=== PATIENT | female | born 1995 | race African-American/Black ===

== ENCOUNTER 2025-03-26 13:53 | Inpatient (IN) | payer SELFPAY ==
[~2025-03-26] VITALS: Ht 162.6 cm; Wt 50.8 kg
[2025-03-26 13:56] VITALS: O2SAT 100
[2025-03-26 14:33] LABS: BG DEOXYHEMOGLOBIN 27.8 % (0.0-5.0)
[2025-03-26 14:39] LABS: BASOPHILS % 0.4 % (0.0-2.0); EOSINOPHILS % 0.8 % (0.0-5.0); HEMATOCRIT. 40.4 % (36.0-48.0); HEMOGLOBIN. 13.3 g/dL (12.0-16.0); LYMPHOCYTES % 18.0 % (20.0-50.0); MEAN PLATELET VOLUME 9.4 fl (7.4-10.4); MONOCYTES % 7.5 % (2.0-8.0); NEUTROPHILS % 73.3 % (40.0-76.0); PLATELET 206 x1000/uL (130-400); RED BLOOD CELL COUNT 5.15 mill/uL (4.2-5.4); RED CELL DISTRIBUTION WIDTH 14.4 % (11.6-14.6)
[2025-03-26] MEDS: LEVETIRACETAM 1500MG PREMIX 100 ML IV SCH (14:45)
[2025-03-26 14:52] LABS: CREATININE 0.9 mg/dL (0.6-1.0); ETHANOL BLOOD < 10 mg/dL (<10); UREA NITROGEN BLOOD 8 mg/dL (9-23)
[2025-03-26 14:53] LABS: ASPARTATE AMINOTRANSFERASE 18 IU/L (<34); PROTEIN TOTAL 7.4 g/dL (6.0-8.3)
[2025-03-26 14:54] LABS: BILIRUBIN DIRECT 0.2 mg/dL (<=3.0); BILIRUBIN TOTAL 0.6 mg/dL (0.1-1.0)
[2025-03-26] MEDS ORDERED: MORPHINE SULFATE 2 MG/ML INJ (NOT FOR IM USE) IV PRN (18:30)
[2025-03-26] MEDS ORDERED: ACETAMINOPHEN 325MG TABLET PO PRN (18:30)
[2025-03-26] MEDS ORDERED: ENOXAPARIN 40MG/0.4ML SYR SUBCUT SCH (18:30)
[2025-03-26] MEDS ORDERED: CLONIDINE 0.1MG TABLET PO PRN (18:30)
[2025-03-26] MEDS ORDERED: LORAZEPAM 2MG/ML UD SYRINGE IV PRN (18:30)
[2025-03-26] MEDS ORDERED: NALOXONE HCL 0.4MG/ML VIAL IV PRN (18:45)
[2025-03-26 20:00] VITALS: BP 107/70; PULSE 70; RESP 20; TEMP 36.5; TEMP 36.5292; O2SAT 98
[2025-03-26] MEDS: ENOXAPARIN 30MG/0.3ML SYR SUBCUT SCH (20:00)
[2025-03-26] MEDS ORDERED: ZOLPIDEM TARTRATE 5MG TABLET PO PRN (21:00)
[2025-03-26] MEDS: PANTOPRAZOLE SODIUM 40 MG/VIAL IV SCH (21:03)
[2025-03-26] MEDS: LEVETIRACETAM 1000MG PREMIX 100 ML IV SCH (21:04)
[2025-03-26] MEDS: SODIUM CHLORIDE 0.9% 1,000 ML IV SCH (21:09)
[2025-03-27] VITALS (7 sets, daily range): BP systolic 96–139; BP diastolic 50–81; PULSE 52–68; RESP 18–20; TEMP 36.1–36.8; O2SAT 97–100
[2025-03-27] MEDS: MAGNESIUM/ALUMINUM HYDROXIDE/SIMETHICONE 30ML UDC PO PRN (08:54)
[2025-03-27] MEDS: ONDANSETRON HCL 4MG/2ML INJ IV PRN (08:54)
[2025-03-27] MEDS: HYDROCODONE/ACETAMINOPHEN 5/325MG TABLET PO PRN (08:55)
[2025-03-27] MEDS: LEVETIRACETAM 500MG TABLET PO NR (21:05)
== END 2025-03-27 22:24 | disposition left against medical advice (07) | DRG 53 ==
LOC: ER 13:53 → 7WST 16:52 → EDBEDREQ 16:56 → EDBEDREQTM 16:56
PROVIDERS: ADMIT Internal Medicine; ATTEND Internal Medicine
DX: G40.909 Epilepsy, unspecified, not intractable, without status epilepticus (principal); G93.40 Encephalopathy, unspecified; Z53.29 Procedure and treatment not carried out because of patient's decision for other reasons; Z91.148 Patient's other noncompliance with medication regimen for other reason
CPT/HCPCS: 36415; 80048; 80076; 80320; 82375; 82550; 82803; 83605; 83735; 85025; 93005; 93970; 96365; 99285; A4606; J1650; J1953; J2405; J2470; G0480